=== PATIENT | female | born 1950 | race Caucasian/White ===

== ENCOUNTER 2017-03-15 15:01 | Outpatient (CLI) | payer MEDICARE, OTHER ==
[~2017-03-15 15:01] MED LIST: Gadobenate Dimeglumine 529 MG/1 ML (20ML VIAL) ONE
== END 2017-03-15 15:02 | disposition home or self-care (01) ==
LOC: BICMRI 15:01
PROVIDERS: ATTEND Otolaryngology Plastic Surgery within the Head & Neck
DX: H81.09 Meniere's disease, unspecified ear (principal)
CPT/HCPCS: 70553; A9579